=== PATIENT | female | born 1990 | race Caucasian/White ===

== ENCOUNTER 2025-06-11 15:45 | Emergency (ER) | payer OTHER ==
[~2025-06-11] VITALS: Ht 167.6 cm; Wt 63.0 kg
[2025-06-11 15:47] VITALS: O2SAT 99
[2025-06-11] MEDS ORDERED: IBUP-2028 MT (21:08)
[2025-06-11] MEDS ORDERED: CLIN-194 MT (21:08)
[2025-06-11] MEDS ORDERED: DOXY100T2 MT (21:12)
[2025-06-11 21:14] LABS: BASOPHILS % 0.5 % (0.0-2.0); EOSINOPHILS % 0.3 % (0.0-5.0); HEMATOCRIT. 36.7 % (36.0-48.0); HEMOGLOBIN. 12.3 g/dL (12.0-16.0); LYMPHOCYTES % 16.5 % (20.0-50.0); MEAN PLATELET VOLUME 8.1 fl (7.4-10.4); MONOCYTES % 5.6 % (2.0-8.0); NEUTROPHILS % 77.1 % (40.0-76.0); PLATELET 409 x1000/uL (130-400); RED BLOOD CELL COUNT 3.83 mill/uL (4.2-5.4); RED CELL DISTRIBUTION WIDTH 12.1 % (11.6-14.6)
[2025-06-11 21:28] LABS: CREATININE 0.7 mg/dL (0.6-1.0); UREA NITROGEN BLOOD 6 mg/dL (9-23)
[2025-06-11 21:30] LABS: ASPARTATE AMINOTRANSFERASE 15 IU/L (<34)
[2025-06-11 21:31] LABS: BILIRUBIN DIRECT 0.1 mg/dL (<=3.0); BILIRUBIN TOTAL 0.5 mg/dL (0.1-1.0); PROTEIN TOTAL 7.3 g/dL (6.0-8.3)
[2025-06-11 21:44] VITALS: BP 136/94; PULSE 93; RESP 15; TEMP 36.4; O2SAT 100
[2025-06-11] MEDS: HYDROCODONE/ACETAMINOPHEN 5/325MG TABLET PO ONE (21:45)
[2025-06-11 22:59] LABS: CLARITY URINE CLOUDY (CLEAR); COLOR URINE ORANGE (YELLOW); GLUCOSE URINE NEGATIVE (NEGATIVE); KETONES URINE 1+ (NEGATIVE); LEUKOCYTE ESTERASE URINE 3+ (NEGATIVE); NITRITE URINE POSITIVE (NEGATIVE); OCCULT BLOOD URINE 3+ (NEGATIVE); PH URINE 8.5 (4.5-8.0); PROTEIN URINE 1+ (NEGATIVE); SPECIFIC GRAVITY URINE 1.018 (1.005-1.030); UROBILINOGEN URINE 1.0 E.U./dL (0.2-1.0)
[2025-06-11 23:00] LABS: HCG SCREEN NEGATIVE
[2025-06-11 23:26] LABS: RBC URINE 50-100 /hpf (0-2); WBC URINE 50-100 /hpf (0-2)
[2025-06-11 23:27] LABS: BACTERIA URINE 1+; MUCUS URINE 1+ /lpf (< = 2+); SQUAMOUS EPITHELIAL CELL URINE 1+ /lpf (RARE/1+)
[2025-06-13 05:12] LABS: HSV TYPE 2 SPECIFIC AB IGG Non Reactive (Non Reactive)
== END 2025-06-11 22:04 | disposition home or self-care (01) ==
LOC: ER 15:45
DX: N75.0 Cyst of Bartholin's gland (principal); R10.20 Pelvic and perineal pain unspecified side
CPT/HCPCS: 36415; 80048; 80076; 81003; 81025; 84703; 85025; 86592; 86695; 86696; 87077; 87186; 99283